=== PATIENT | male | born 1995 | race African-American/Black ===

== ENCOUNTER 2021-07-16 18:56 | Emergency (ER) | payer SELFPAY ==
[2021-07-16 19:57] VITALS: BP 126/77
[2021-07-16] MEDS ORDERED: oxyCODONE /ACETAMINOPHEN 5-325MG TAB PO ONE (20:22)
--- NOTE | 2021-07-16 20:27 | Emergency Department Report ---
ED General Adult HPI - General Chief complaint: Dental/Oral Stated complaint: TOOTHACHE Time Seen by Provider: 07/16/21 20:05 Source: patient Mode of arrival: Ambulatory Limitations: No Limitations - History of Present Illness Initial comments: 25-year-old male patient presents with complaints of left lower dental pain x3 days. He rates his pain as a 10/10 in severity and states he is getting only 1 to 2 hours of relief with OTC pain medication. He is not currently following with a dentist. He denies any fever/chills/sweats, cough, chest pain, or facial swelling. NKDA per patient - Related Data Previous Rx's Medication Instructions Recorded Last Taken Type Acetaminophen/Codeine [Tylenol 1 tab PO Q8H PRN #10 tab 07/16/21 Unknown Rx /Codeine # 3 tab] Naproxen [Naprosyn TAB] 500 mg PO BID PRN #20 tablet 07/16/21 Unknown Rx Penicillin V Potassium 500 mg PO QID 7 Days #28 tab 07/16/21 Unknown Rx Allergies Allergy/AdvReac Type Severity Reaction Status Date / Time No Known Allergies Allergy Unverified 07/16/21 20:02 ED Review of Systems ROS: Stated complaint: TOOTHACHE Other details as noted in HPI Constitutional: denies: chills, fever, malaise ENT: dental pain. denies: throat pain Cardiovascular: as per HPI Hematological/Lymphatic: denies: swollen glands ED Past Medical Hx - Past Medical History Previous Medical History?: No - Surgical History Past Surgical History?: No - Social History Smoking Status: Current Every Day Smoker Substance Use Type: None - Medications Home Medications: Home Medications Medication Instructions Recorded Confirmed Last Taken Type Acetaminophen/Codeine [Tylenol 1 tab PO Q8H PRN #10 tab 07/16/21 Unknown Rx /Codeine # 3 tab] Naproxen [Naprosyn TAB] 500 mg PO BID PRN #20 tablet 07/16/21 Unknown Rx Penicillin V Potassium 500 mg PO QID 7 Days #28 tab 07/16/21 Unknown Rx ED Physical Exam - General Limitations: No Limitations General appearance: alert, in no apparent distress - Head Head exam: Present: atraumatic, normocephalic - Eye Eye exam: Present: normal appearance. Absent: scleral icterus - Expanded ENT Exam Expanded Mouth exam: Present: normal external inspection. Absent: drooling, trismus, muffled voice 1 - Fractured, Dental Tenderness Throat exam: Positive: normal inspection - Neurological Exam Neurological exam: Present: alert, oriented X3 - Psychiatric Psychiatric exam: Present: normal affect, normal mood - Skin Skin exam: Present: warm, dry, intact, normal color. Absent: rash ED Course Vital Signs 07/16/21 19:53 Temperature 98.3 F Pulse Rate 89 Respiratory 18 Rate Blood Pressure 126/77 O2 Sat by Pulse 95 Oximetry ED Medical Decision Making - Medical Decision Making 25-year-old male patient presents with complaints of left lower dental pain x3 days. He rates his pain as a 10/10 in severity and states he is getting only 1 to 2 hours of relief with OTC pain medication. He is not currently following with a dentist. He denies any fever/chills/sweats, cough, chest pain, or facial swelling. NKDA per patient Patient given penicillin and pain medication. Follow-up with a dental specialist within 1 week. Referrals given. He is well-appearing, his vitals are within normal limits, he is stable for discharge home. Discussed signs and symptoms that should prompt immediate return to the emergency department in detail patient verbalizes understanding Critical care attestation.: If time is entered above; I have spent that time in minutes in the direct care of this critically ill patient, excluding procedure time. ED Disposition Clinical Impression: Pain, dental Disposition: HOME / SELF CARE / HOMELESS Is pt being admited?: No Condition: Stable Prescriptions: Naproxen [Naprosyn TAB] 500 mg PO BID PRN #20 tablet PRN Reason: Pain, Moderate (4-6) Penicillin V Potassium 500 mg PO QID 7 Days #28 tab Acetaminophen/Codeine [Tylenol /Codeine # 3 tab] 1 tab PO Q8H PRN #10 tab PRN Reason: Pain , Severe (7-10) Referrals: [facility] [Outside] - 3-5 Days [facility] [Outside] - 3-5 Days Forms: Work/School Release Form(ED)
== END 2021-07-16 21:02 | disposition home or self-care (01) ==
LOC: ED 18:56
DX: K08.89 Other specified disorders of teeth and supporting structures (principal); F17.200 Nicotine dependence, unspecified, uncomplicated
CPT/HCPCS: 99282